=== PATIENT | female | born 1970 | race Caucasian/White ===

== ENCOUNTER 2021-09-12 11:31 | Emergency (ER) | payer BC ==
[~2021-09-12] VITALS: Ht 162.6 cm; Wt 81.0 kg
[2021-09-12 12:23] LABS: BASOPHILS % (AUTO) 0.3 % (0-1); EOSINOPHILS # (AUTO) 0.3 X10'3 (0-0.9); EOSINOPHILS % (AUTO) 3.3 % (0-6); HEMOGLOBIN 13.1 g/dl (12.0-16.0); MEAN CORPUSCULAR HGB CONC 33.6 g/dL (33.0-36.5); MEAN CORPUSCULAR VOLUME 86.3 FL (78-98); MEAN PLATELET VOLUME 8.1 FL (7.4-10.4); MONOCYTES # (AUTO) 0.8 X10'3 (0-0.9); MONOCYTES % (AUTO) 9.4 % (2-12); NEUTROPHILS # (AUTO) 5.8 X10'3 (1.8-7.7); PLATELET COUNT 277 X10'3 (140-440); RED BLOOD COUNT 4.52 X10'6 (4.20-5.60); RED CELL DISTRIBUTION WIDTH 13.1 % (11.5-14.5); WHITE BLOOD COUNT 8.9 X10'3 (4.5-11.0)
[2021-09-12 12:41] LABS: ALANINE AMINOTRANSFERASE 37 U/L (12-78); ALBUMIN 3.9 G/DL (3.4-5.0); ALKALINE PHOSPHATASE 75 IU/L (46-116); ANION GAP 10 (8-16); ASPARTATE AMINO TRANSFERASE 20 U/L (10-37); BILIRUBIN,TOTAL 0.2 MG/DL (0.1-1.0); BLOOD UREA NITROGEN 18 MG/DL (7-18); BUN/CREATININE RATIO 22.5 (6.6-38.0); CALCIUM 9.1 MG/DL (8.5-10.1); CHLORIDE 105 MMOL/L (99-107); GLUCOSE 95 MG/DL (70-104); SODIUM 142 MMOL/L (135-145); TOTAL CARBON DIOXIDE 26.6 MMOL/L (24-32); TOTAL PROTEIN 7.7 G/DL (6.4-8.2); eGFR 76 ML/MIN
[2021-09-12] MEDS ORDERED: HYDROcodone/acetaminophen 10/325mg tab PO ONE (15:45)
[2021-09-12] MEDS ORDERED: HYDR-3972 PO (15:48)
[2021-09-12 15:56] VITALS: BP 143/98
[2021-09-12 16:20] LABS: COLOR,URINE YELLOW (Yellow); GLUCOSE, URINE NEGATIVE (Neg); KETONES,URINE TRACE mg/dl (Neg); LEUKOCYTE ESTERASE ,URINE TRACE (Neg); NITRITES, URINE NEGATIVE (Neg); OCCULT BLOOD,URINE MODERATE (Neg); PH,URINE 5.5 (4.8-8.0); PROTEIN,URINE NEGATIVE (Neg); UROBILINOGEN,URINE 0.2 E.U/dL (0.2-1.0)
[2021-09-12 16:22] LABS: CLARITY,URINE SLIGHTLY CLOUDY (Clear); UA COLLECTION TYPE NON-SPECIFIED
[2021-09-12 16:28] LABS: BACTERIA,URINE 1+ /HPF (Neg); MUCUS STRANDS FEW /LPF (Neg); SQUAMOUS EPITHELIAL CELL,UR FEW /LPF (FEW); WBC,URINE 0-4 /HPF (0-4)
== END 2021-09-12 16:06 | disposition home or self-care (01) ==
LOC: ER 11:32
DX: M54.6 Pain in thoracic spine (principal); R05.9 Cough, unspecified; R10.9 Unspecified abdominal pain; Z91.040 Latex allergy status; Z88.2 Allergy status to sulfonamides; Z79.899 Other long term (current) drug therapy
CPT/HCPCS: 36415; 71045; 80053; 81001; 83880; 84484; 85025; 87088; 93005; 99285

== ENCOUNTER 2022-08-15 23:24 | Emergency (ER) | payer BC ==
[~2022-08-15] VITALS: Ht 162.6 cm; Wt 80.0 kg
[2022-08-15 23:45] LABS: HEMOGLOBIN 12.6 g/dl (12.0-16.0); PLATELET COUNT 250 X10'3 (140-440)
[2022-08-15 23:46] LABS: BASOPHILS # (AUTO) 0.1 X10'3 (0-0.2); BASOPHILS % (AUTO) 0.8 % (0-1); EOSINOPHILS # (AUTO) 0.3 X10'3 (0-0.9); EOSINOPHILS % (AUTO) 3.7 % (0-6); HEMATOCRIT 37.8 % (35.0-45.0); LYMPHOCYTES # (AUTO) 2.7 X10'3 (1.1-4.8); MEAN CORPUSCULAR HEMOGLOBIN 29.6 PG (27.0-31.0); MEAN CORPUSCULAR HGB CONC 33.4 g/dL (33.0-36.5); MEAN CORPUSCULAR VOLUME 88.5 FL (78-98); MEAN PLATELET VOLUME 8.2 FL (7.4-10.4); MONOCYTES # (AUTO) 0.8 X10'3 (0-0.9); MONOCYTES % (AUTO) 9.5 % (2-12); NEUTROPHILS # (AUTO) 4.8 X10'3 (1.8-7.7); RED BLOOD COUNT 4.27 X10'6 (4.20-5.60); RED CELL DISTRIBUTION WIDTH 13.6 % (11.5-14.5); WHITE BLOOD COUNT 8.8 X10'3 (4.5-11.0)
[2022-08-15 23:55] LABS: ALANINE AMINOTRANSFERASE 21 U/L (12-78); ALBUMIN 3.5 G/DL (3.4-5.0); ALKALINE PHOSPHATASE 76 IU/L (46-116); ANION GAP 5 (8-16); ASPARTATE AMINO TRANSFERASE 17 U/L (10-37); BILIRUBIN,TOTAL 0.2 MG/DL (0.1-1.0); BLOOD UREA NITROGEN 23 MG/DL (7-18); BUN/CREATININE RATIO 24.2 (10.0-20.0); CALCIUM 8.8 MG/DL (8.5-10.1); CHLORIDE 104 MMOL/L (99-107); CREATININE 0.95 MG/DL (0.40-0.90); GLUCOSE 111 MG/DL (70-104); POTASSIUM 3.8 MMOL/L (3.5-5.1); SODIUM 142 MMOL/L (135-145); TOTAL CARBON DIOXIDE 32.7 MMOL/L (24-32); eGFR 62 ML/MIN
[2022-08-16] MEDS ORDERED: ipratropium/albuterol 3ml nebule NEB ONE (00:25)
[2022-08-16 01:04] LABS: D-DIMER 0.68 MG/L FEU (0-0.50)
[2022-08-16] MEDS ORDERED: iohexol 350MG/ML 100ml bottle IV ONE (01:24)
[2022-08-16] MEDS ORDERED: predniSONE 20 mg tablet PO ONE (02:55)
[2022-08-16] MEDS ORDERED: PRED20TA PO (02:56)
[2022-08-16 04:35] VITALS: BP 116/78
== END 2022-08-16 04:36 | disposition home or self-care (01) ==
LOC: ER 23:25
DX: J45.901 Unspecified asthma with (acute) exacerbation (principal); R07.9 Chest pain, unspecified; E03.9 Hypothyroidism, unspecified; Z91.040 Latex allergy status; Z88.2 Allergy status to sulfonamides; Z79.899 Other long term (current) drug therapy
CPT/HCPCS: 36415; 71045; 71275; 80053; 83735; 83880; 84439; 84443; 84484; 85025; 85379; 93005; 94640; 99285; J3490; J7512; Q9967; 94760

== ENCOUNTER 2022-09-16 16:25 | Emergency (ER) | payer BC ==
[~2022-09-16] VITALS: Ht 162.6 cm; Wt 85.0 kg
[2022-09-16 16:55] LABS: BASOPHILS % (AUTO) 0.5 % (0-1); EOSINOPHILS # (AUTO) 0.2 X10'3 (0-0.9); EOSINOPHILS % (AUTO) 2.7 % (0-6); HEMATOCRIT 38.8 % (35.0-45.0); HEMOGLOBIN 12.9 g/dl (12.0-16.0); LYMPHOCYTES # (AUTO) 1.9 X10'3 (1.1-4.8); LYMPHOCYTES % (AUTO) 27.1 % (21-51); MEAN CORPUSCULAR HEMOGLOBIN 29.4 PG (27.0-31.0); MEAN CORPUSCULAR HGB CONC 33.1 g/dL (33.0-36.5); MEAN CORPUSCULAR VOLUME 88.7 FL (78-98); MEAN PLATELET VOLUME 8.3 FL (7.4-10.4); MONOCYTES # (AUTO) 0.6 X10'3 (0-0.9); MONOCYTES % (AUTO) 8.5 % (2-12); NEUTROPHILS # (AUTO) 4.3 X10'3 (1.8-7.7); NEUTROPHILS % (AUTO) 61.2 % (42-75); PLATELET COUNT 273 X10'3 (140-440); RED BLOOD COUNT 4.38 X10'6 (4.20-5.60); RED CELL DISTRIBUTION WIDTH 13.3 % (11.5-14.5)
[2022-09-16 17:08] LABS: ALANINE AMINOTRANSFERASE 27 U/L (12-78); ALBUMIN 3.5 G/DL (3.4-5.0); ALBUMIN/GLOBULIN RATIO 0.9 (1.1-1.5); ALKALINE PHOSPHATASE 71 IU/L (46-116); ANION GAP 7 (8-16); ASPARTATE AMINO TRANSFERASE 18 U/L (10-37); BILIRUBIN,TOTAL 0.2 MG/DL (0.1-1.0); BLOOD UREA NITROGEN 15 MG/DL (7-18); BUN/CREATININE RATIO 22.1 (10.0-20.0); CHLORIDE 106 MMOL/L (99-107); CREATININE 0.68 MG/DL (0.40-0.90); GLUCOSE 93 MG/DL (70-104); POTASSIUM 3.7 MMOL/L (3.5-5.1); SODIUM 141 MMOL/L (135-145); TOTAL CARBON DIOXIDE 27.6 MMOL/L (24-32); TOTAL PROTEIN 7.6 G/DL (6.4-8.2); eGFR > 90 ML/MIN
[2022-09-16 18:38] VITALS: BP 117/82
== END 2022-09-16 18:39 | disposition home or self-care (01) ==
LOC: ER 16:26
DX: R07.9 Chest pain, unspecified (principal); E03.9 Hypothyroidism, unspecified; J45.909 Unspecified asthma, uncomplicated; Z91.040 Latex allergy status; Z79.899 Other long term (current) drug therapy
CPT/HCPCS: 36415; 71045; 80053; 83735; 83880; 84484; 85025; 93005; 99285

== ENCOUNTER 2022-11-05 11:56 | Emergency (ER) | payer BC ==
[~2022-11-05] VITALS: Ht 162.6 cm; Wt 80.9 kg
[2022-11-05 12:40] VITALS: BP 127/105
[2022-11-05 12:51] LABS: URINE HCG NEGATIVE (NEG)
[2022-11-05 12:52] LABS: CLARITY,URINE SLIGHTLY CLOUDY (Clear); COLOR,URINE YELLOW (Yellow); GLUCOSE, URINE NEGATIVE (Neg); KETONES,URINE NEGATIVE (Neg); LEUKOCYTE ESTERASE ,URINE NEGATIVE (Neg); NITRITES, URINE NEGATIVE (Neg); OCCULT BLOOD,URINE TRACE-INTACT (Neg); PH,URINE 5.5 (4.8-8.0); PROTEIN,URINE NEGATIVE (Neg); UROBILINOGEN,URINE 0.2 E.U/dL (0.2-1.0)
[2022-11-05 13:02] LABS: UA COLLECTION TYPE CLN CATCH MIDSTREAM
[2022-11-05 13:11] LABS: MUCUS STRANDS MODERATE /LPF (Neg); SQUAMOUS EPITHELIAL CELL,UR MANY /LPF (FEW)
[2022-11-05 13:12] LABS: BACTERIA,URINE 3+ /HPF (Neg)
[2022-11-05 13:14] LABS: HYALINE CASTS 0-3 /LPF (NEGATIVE)
[2022-11-05 13:38] LABS: ALANINE AMINOTRANSFERASE 27 U/L (12-78); ALBUMIN 3.5 G/DL (3.4-5.0); ALKALINE PHOSPHATASE 79 IU/L (46-116); ANION GAP 6 (8-16); ASPARTATE AMINO TRANSFERASE 16 U/L (10-37); BILIRUBIN,TOTAL 0.1 MG/DL (0.1-1.0); BLOOD UREA NITROGEN 15 MG/DL (7-18); BUN/CREATININE RATIO 18.3 (10.0-20.0); CALCIUM 8.7 MG/DL (8.5-10.1); CHLORIDE 106 MMOL/L (99-107); CREATININE 0.82 MG/DL (0.40-0.90); GLUCOSE 83 MG/DL (70-104); POTASSIUM 4.1 MMOL/L (3.5-5.1); SODIUM 140 MMOL/L (135-145); TOTAL CARBON DIOXIDE 27.6 MMOL/L (24-32); TOTAL PROTEIN 6.9 G/DL (6.4-8.2); eGFR 73 ML/MIN
[2022-11-05 13:51] LABS: BASOPHILS % (AUTO) 0.7 % (0-1); EOSINOPHILS # (AUTO) 0.2 X10'3 (0-0.9); HEMATOCRIT 37.8 % (35.0-45.0); HEMOGLOBIN 12.6 g/dl (12.0-16.0); LYMPHOCYTES # (AUTO) 1.9 X10'3 (1.1-4.8); LYMPHOCYTES % (AUTO) 28.1 % (21-51); MEAN CORPUSCULAR HEMOGLOBIN 29.8 PG (27.0-31.0); MEAN CORPUSCULAR HGB CONC 33.4 g/dL (33.0-36.5); MEAN CORPUSCULAR VOLUME 89.2 FL (78-98); MEAN PLATELET VOLUME 8.5 FL (7.4-10.4); MONOCYTES # (AUTO) 0.5 X10'3 (0-0.9); MONOCYTES % (AUTO) 7.7 % (2-12); NEUTROPHILS % (AUTO) 60.5 % (42-75); PLATELET COUNT 259 X10'3 (140-440); RED BLOOD COUNT 4.24 X10'6 (4.20-5.60); WHITE BLOOD COUNT 6.6 X10'3 (4.5-11.0)
[2022-11-05 13:53] LABS: CLARITY,URINE CLOUDY (Clear); COLOR,URINE YELLOW (Yellow); GLUCOSE, URINE NEGATIVE (Neg); KETONES,URINE NEGATIVE (Neg); LEUKOCYTE ESTERASE ,URINE NEGATIVE (Neg); NITRITES, URINE NEGATIVE (Neg); OCCULT BLOOD,URINE TRACE-INTACT (Neg); PROTEIN,URINE NEGATIVE (Neg); UROBILINOGEN,URINE 0.2 E.U/dL (0.2-1.0)
[2022-11-05 13:54] LABS: UA COLLECTION TYPE CLN CATCH MIDSTREAM
[2022-11-05 14:02] LABS: BACTERIA,URINE 3+ /HPF (Neg); MUCUS STRANDS MODERATE /LPF (Neg); RBC,URINE 0-2 /HPF (0-2)
[2022-11-05 14:06] LABS: SQUAMOUS EPITHELIAL CELL,UR MANY /LPF (FEW)
== END 2022-11-05 14:38 | disposition home or self-care (01) ==
LOC: ER 11:57
DX: R10.9 Unspecified abdominal pain (principal); Z91.040 Latex allergy status; E03.9 Hypothyroidism, unspecified; Z90.49 Acquired absence of other specified parts of digestive tract; Z90.710 Acquired absence of both cervix and uterus
CPT/HCPCS: 36415; 74176; 80053; 81001; 81025; 85025; 87088; 99284

== ENCOUNTER 2022-11-11 13:55 | Emergency (ER) | payer BC ==
[~2022-11-11] VITALS: Ht 162.6 cm; Wt 81.8 kg
[2022-11-11 14:21] LABS: BASOPHILS % (AUTO) 0.5 % (0-1); EOSINOPHILS # (AUTO) 0.1 X10'3 (0-0.9); EOSINOPHILS % (AUTO) 1.2 % (0-6); HEMATOCRIT 39.3 % (35.0-45.0); HEMOGLOBIN 13.3 g/dl (12.0-16.0); LYMPHOCYTES % (AUTO) 23.8 % (21-51); MEAN CORPUSCULAR HEMOGLOBIN 30.1 PG (27.0-31.0); MEAN CORPUSCULAR HGB CONC 33.7 g/dL (33.0-36.5); MEAN CORPUSCULAR VOLUME 89.2 FL (78-98); MEAN PLATELET VOLUME 7.8 FL (7.4-10.4); MONOCYTES # (AUTO) 0.6 X10'3 (0-0.9); MONOCYTES % (AUTO) 7.2 % (2-12); NEUTROPHILS # (AUTO) 5.7 X10'3 (1.8-7.7); NEUTROPHILS % (AUTO) 67.3 % (42-75); PLATELET COUNT 299 X10'3 (140-440); RED CELL DISTRIBUTION WIDTH 13.1 % (11.5-14.5); WHITE BLOOD COUNT 8.4 X10'3 (4.5-11.0)
[2022-11-11 14:28] LABS: ALANINE AMINOTRANSFERASE 23 U/L (12-78); ALBUMIN 3.8 G/DL (3.4-5.0); ALKALINE PHOSPHATASE 78 IU/L (46-116); ANION GAP 7 (8-16); ASPARTATE AMINO TRANSFERASE 13 U/L (10-37); BILIRUBIN,TOTAL 0.1 MG/DL (0.1-1.0); BLOOD UREA NITROGEN 25 MG/DL (7-18); BUN/CREATININE RATIO 31.3 (10.0-20.0); CALCIUM 9.3 MG/DL (8.5-10.1); CHLORIDE 104 MMOL/L (99-107); GLUCOSE 91 MG/DL (70-104); POTASSIUM 4.2 MMOL/L (3.5-5.1); SODIUM 141 MMOL/L (135-145); TOTAL CARBON DIOXIDE 30.5 MMOL/L (24-32); TOTAL PROTEIN 7.6 G/DL (6.4-8.2); eGFR 76 ML/MIN
[2022-11-11] MEDS ORDERED: aspirin 81mg tab.chew PO ONE (14:35)
[2022-11-11] MEDS ORDERED: nitroGLYCERIN 0.4mg SUBLingual tab SL PRN (14:35)
[2022-11-11 18:19] VITALS: BP 133/93
== END 2022-11-11 18:22 | disposition home or self-care (01) ==
LOC: ER 13:55
DX: R42 Dizziness and giddiness (principal); R07.89 Other chest pain; R11.0 Nausea; J45.909 Unspecified asthma, uncomplicated; E03.9 Hypothyroidism, unspecified; Z91.040 Latex allergy status; Z90.49 Acquired absence of other specified parts of digestive tract; Z90.710 Acquired absence of both cervix and uterus
CPT/HCPCS: 36415; 71045; 80053; 83880; 84484; 85025; 93005; 99285

== ENCOUNTER 2023-01-10 21:47 | Emergency (ER) | payer BC ==
[~2023-01-10] VITALS: Ht 162.6 cm; Wt 81.8 kg
[2023-01-10 22:13] VITALS: TEMP 98.9
[2023-01-11 01:07] LABS: ALANINE AMINOTRANSFERASE 23 U/L (12-78); ALBUMIN 3.1 G/DL (3.4-5.0); ALBUMIN/GLOBULIN RATIO 0.8 (1.1-1.5); ALKALINE PHOSPHATASE 74 IU/L (46-116); ANION GAP 7 (8-16); ASPARTATE AMINO TRANSFERASE 16 U/L (10-37); BILIRUBIN,TOTAL 0.2 MG/DL (0.1-1.0); BLOOD UREA NITROGEN 23 MG/DL (7-18); BUN/CREATININE RATIO 33.3 (10.0-20.0); CALCIUM 9.1 MG/DL (8.5-10.1); CHLORIDE 107 MMOL/L (99-107); CREATININE 0.69 MG/DL (0.40-0.90); GLUCOSE 119 MG/DL (70-104); SODIUM 141 MMOL/L (135-145); TOTAL CARBON DIOXIDE 26.9 MMOL/L (24-32); eCRCL 82 ML/MIN; eGFR 89 ML/MIN
[2023-01-11 01:16] LABS: PRO BRAIN NATRIURETIC PEPTIDE 59 PG/ML (0-125)
[2023-01-11 01:26] LABS: BASOPHILS # (AUTO) 0.1 X10'3 (0-0.2); BASOPHILS % (AUTO) 1.3 % (0-1); EOSINOPHILS # (AUTO) 0.1 X10'3 (0-0.9); EOSINOPHILS % (AUTO) 0.6 % (0-6); HEMATOCRIT 37.5 % (35.0-45.0); HEMOGLOBIN 12.6 g/dl (12.0-16.0); LYMPHOCYTES # (AUTO) 2.3 X10'3 (1.1-4.8); LYMPHOCYTES % (AUTO) 22.4 % (21-51); MEAN CORPUSCULAR HEMOGLOBIN 30.1 PG (27.0-31.0); MEAN CORPUSCULAR HGB CONC 33.5 g/dL (33.0-36.5); MEAN CORPUSCULAR VOLUME 89.7 FL (78-98); MEAN PLATELET VOLUME 7.8 FL (7.4-10.4); MONOCYTES # (AUTO) 0.8 X10'3 (0-0.9); MONOCYTES % (AUTO) 7.7 % (2-12); NEUTROPHILS # (AUTO) 6.9 X10'3 (1.8-7.7); PLATELET COUNT 286 X10'3 (140-440); RED BLOOD COUNT 4.18 X10'6 (4.20-5.60); WHITE BLOOD COUNT 10.1 X10'3 (4.5-11.0)
[2023-01-11] MEDS ORDERED: aspirin 81mg tab.chew PO ONE (02:10)
[2023-01-11] MEDS ORDERED: normal saline 1000ML IV soln IVB ONE (02:10)
[2023-01-11] MEDS ORDERED: LORazepam 2 mg/ml vial IV ONE (02:10)
[2023-01-11] MEDS ORDERED: metoprolol tartrate 25mg tablet PO ONE (02:10)
[2023-01-11] MEDS ORDERED: ketorolac trometh. 30mg/ml inj. IV ONE (02:10)
[2023-01-11 02:20] VITALS: BP_DIAS 82
[2023-01-11 02:25] VITALS: BP_SYST 117
[2023-01-11 02:53] LABS: LIPASE 93 U/L (73-393); MAGNESIUM 2.3 MG/DL (1.5-2.4)
[2023-01-11 03:16] LABS: ETHANOL < 10 MG/DL (<10)
[2023-01-11 03:49] VITALS: PULSE 64; RESP 18; O2SAT 97
== END 2023-01-11 03:51 | disposition home or self-care (01) ==
LOC: ER 21:48
DX: R07.9 Chest pain, unspecified (principal); R00.2 Palpitations; F41.0 Panic disorder [episodic paroxysmal anxiety]; J45.909 Unspecified asthma, uncomplicated; E03.9 Hypothyroidism, unspecified; Z90.49 Acquired absence of other specified parts of digestive tract; Z91.040 Latex allergy status
CPT/HCPCS: 36415; 71045; 80053; 80320; 83690; 83735; 83880; 84484; 85025; 93005; 96361; 96374; 99285; J1885; J7030

== ENCOUNTER 2023-01-18 08:56 | Emergency (ER) | payer BC ==
[~2023-01-18] VITALS: Ht 162.6 cm; Wt 80.8 kg
[2023-01-18 08:59] VITALS: BP 124/85; PULSE 71; RESP 16; TEMP 98.4; O2SAT 98
[2023-01-18] MEDS ORDERED: GABA-530 PO (21:02)
== END 2023-01-18 13:34 | disposition left against medical advice (07) ==
LOC: ER 08:57
DX: M79.671 Pain in right foot (principal); M79.672 Pain in left foot; Z53.21 Procedure and treatment not carried out due to patient leaving prior to being seen by health care provider
CPT/HCPCS: 99281

== ENCOUNTER 2023-01-18 15:16 | Emergency (ER) | payer BC ==
[~2023-01-18] VITALS: Ht 162.6 cm; Wt 76.4 kg
[2023-01-18 15:17] VITALS: BP 138/87; PULSE 80; RESP 16; TEMP 98; O2SAT 95
[2023-01-18 17:57] LABS: BASOPHILS % (AUTO) 0.4 % (0-1); EOSINOPHILS # (AUTO) 0.1 X10'3 (0-0.9); EOSINOPHILS % (AUTO) 1.6 % (0-6); HEMATOCRIT 39.1 % (35.0-45.0); LYMPHOCYTES # (AUTO) 1.8 X10'3 (1.1-4.8); LYMPHOCYTES % (AUTO) 21.7 % (21-51); MEAN CORPUSCULAR HEMOGLOBIN 30.3 PG (27.0-31.0); MEAN CORPUSCULAR HGB CONC 33.3 g/dL (33.0-36.5); MEAN PLATELET VOLUME 7.6 FL (7.4-10.4); MONOCYTES # (AUTO) 0.7 X10'3 (0-0.9); MONOCYTES % (AUTO) 8.2 % (2-12); NEUTROPHILS # (AUTO) 5.5 X10'3 (1.8-7.7); NEUTROPHILS % (AUTO) 68.1 % (42-75); PLATELET COUNT 265 X10'3 (140-440); RED CELL DISTRIBUTION WIDTH 13.5 % (11.5-14.5); WHITE BLOOD COUNT 8.1 X10'3 (4.5-11.0)
[2023-01-18 18:19] LABS: ALANINE AMINOTRANSFERASE 19 U/L (12-78); ALBUMIN 3.1 G/DL (3.4-5.0); ALBUMIN/GLOBULIN RATIO 0.9 (1.1-1.5); ALKALINE PHOSPHATASE 64 IU/L (46-116); ANION GAP 6 (8-16); ASPARTATE AMINO TRANSFERASE 14 U/L (10-37); BILIRUBIN,TOTAL 0.1 MG/DL (0.1-1.0); BLOOD UREA NITROGEN 16 MG/DL (7-18); BUN/CREATININE RATIO 19.5 (10.0-20.0); CALCIUM 8.9 MG/DL (8.5-10.1); CHLORIDE 105 MMOL/L (99-107); CREATININE 0.82 MG/DL (0.40-0.90); GLUCOSE 104 MG/DL (70-104); POTASSIUM 3.9 MMOL/L (3.5-5.1); SODIUM 142 MMOL/L (135-145); TOTAL CARBON DIOXIDE 31.5 MMOL/L (24-32); TOTAL PROTEIN 6.7 G/DL (6.4-8.2); eCRCL 69 ML/MIN; eGFR 73 ML/MIN
--- NOTE | 2023-01-18 20:00 | NUR ---
VAS AT BS
[2023-01-18] MEDS ORDERED: GABA-530 PO (21:02)
== END 2023-01-18 21:10 | disposition home or self-care (01) ==
LOC: ER 15:16
DX: S96.911A Strain of unspecified muscle and tendon at ankle and foot level, right foot, initial encounter (principal); S96.912A Strain of unspecified muscle and tendon at ankle and foot level, left foot, initial encounter; M79.671 Pain in right foot; M79.672 Pain in left foot; E03.9 Hypothyroidism, unspecified; J45.909 Unspecified asthma, uncomplicated; G43.909 Migraine, unspecified, not intractable, without status migrainosus; E78.00 Pure hypercholesterolemia, unspecified; I13.0 Hypertensive heart and chronic kidney disease with heart failure and stage 1 through stage 4 chronic kidney disease, or unspecified chronic kidney disease; I50.9 Heart failure, unspecified; N18.9 Chronic kidney disease, unspecified; J44.9 Chronic obstructive pulmonary disease, unspecified; K21.9 Gastro-esophageal reflux disease without esophagitis; E11.22 Type 2 diabetes mellitus with diabetic chronic kidney disease; Z91.040 Latex allergy status; Z88.2 Allergy status to sulfonamides; Z90.710 Acquired absence of both cervix and uterus; Z90.49 Acquired absence of other specified parts of digestive tract; X58.XXXA Exposure to other specified factors, initial encounter; Y93.89 Activity, other specified; Y92.89 Other specified places as the place of occurrence of the external cause; Y99.8 Other external cause status
CPT/HCPCS: 36415; 73630; 80053; 85025; 85651; 93970; 99284

== ENCOUNTER 2023-06-15 13:55 | Emergency (ER) | payer SELFPAY ==
[~2023-06-15] VITALS: Ht 162.6 cm; Wt 82.3 kg
[~2023-06-15 13:55] MED LIST: GABA-530 PO
[2023-06-15 14:35] VITALS: BP 133/90; PULSE 79; RESP 18; TEMP 98.5; O2SAT 96
[2023-06-15] MEDS ORDERED: FAMO-129 PO (15:17)
[2023-06-15] MEDS ORDERED: PRED10TA23 PO (15:17)
[2023-06-15] MEDS ORDERED: DIPH25CA83 PO (15:17)
[2023-06-15] MEDS ORDERED: PERM60CR19 TOP (15:17)
== END 2023-06-15 15:29 | disposition home or self-care (01) ==
LOC: ER 13:56
DX: S60.562A Insect bite (nonvenomous) of left hand, initial encounter (principal); S60.561A Insect bite (nonvenomous) of right hand, initial encounter; S30.861A Insect bite (nonvenomous) of abdominal wall, initial encounter; S20.369A Insect bite (nonvenomous) of unspecified front wall of thorax, initial encounter; S10.96XA Insect bite of unspecified part of neck, initial encounter; E03.9 Hypothyroidism, unspecified; J45.909 Unspecified asthma, uncomplicated; Z88.2 Allergy status to sulfonamides; Z91.040 Latex allergy status; W57.XXXA Bitten or stung by nonvenomous insect and other nonvenomous arthropods, initial encounter; Y93.89 Activity, other specified; Y92.89 Other specified places as the place of occurrence of the external cause; Y99.8 Other external cause status
CPT/HCPCS: 99283

== ENCOUNTER 2023-09-11 09:24 | Emergency (ER) | payer MEDICAID ==
[~2023-09-11] VITALS: Ht 162.6 cm; Wt 87.0 kg
[~2023-09-11 09:24] MED LIST changes: +ESTR1.25 PO; -GABA-530 PO; +HYOS-26 SL; +LEVO75TA PO; +OXYB5TAB21 PO
[2023-09-11 11:26] VITALS: BP 121/85; PULSE 76; RESP 16; TEMP 98; O2SAT 96
== END 2023-09-11 11:28 | disposition home or self-care (01) ==
LOC: ER 09:25
DX: R51.9 Headache, unspecified (principal); R22.41 Localized swelling, mass and lump, right lower limb; I10 Essential (primary) hypertension; J45.909 Unspecified asthma, uncomplicated; E03.9 Hypothyroidism, unspecified; Z90.49 Acquired absence of other specified parts of digestive tract; Z90.710 Acquired absence of both cervix and uterus; Z88.2 Allergy status to sulfonamides; Z91.040 Latex allergy status
CPT/HCPCS: 99282

== ENCOUNTER 2023-09-28 12:33 | Emergency (ER) | payer MEDICAID ==
[~2023-09-28] VITALS: Ht 162.6 cm; Wt 85.0 kg
[2023-09-28 12:46] VITALS: BP 142/91; PULSE 68; RESP 16; TEMP 98.4; O2SAT 98
[2023-09-29] MEDS ORDERED: AMOX-117 PO (09:53)
== END 2023-09-28 14:55 | disposition left against medical advice (07) ==
LOC: ER 12:34
DX: R51.9 Headache, unspecified (principal); Z53.21 Procedure and treatment not carried out due to patient leaving prior to being seen by health care provider

== ENCOUNTER 2023-09-29 09:01 | Emergency (ER) | payer MEDICAID ==
[~2023-09-29] VITALS: Ht 162.6 cm; Wt 85.4 kg
[2023-09-29 09:26] VITALS: BP 136/98; PULSE 74; RESP 18; TEMP 97.8; O2SAT 98
[2023-09-29] MEDS ORDERED: AMOX-117 PO (09:53)
[2023-10-06] MEDS ORDERED: PRED20TA PO (12:03)
[2023-10-06] MEDS ORDERED: BUDE0.5A3 IH (12:03)
[2023-10-06] MEDS ORDERED: ALBU2.5V7 NEB (12:03)
[2023-10-06] MEDS ORDERED: TIZA-205 PO (12:03)
[2023-10-06] MEDS ORDERED: MONT-40 PO (12:03)
[2023-10-06] MEDS ORDERED: HYDR-3964 PO (12:03)
== END 2023-09-29 10:26 | disposition home or self-care (01) ==
LOC: ER 09:01
DX: J01.90 Acute sinusitis, unspecified (principal); R51.9 Headache, unspecified; H92.03 Otalgia, bilateral; J02.9 Acute pharyngitis, unspecified; J45.909 Unspecified asthma, uncomplicated; I10 Essential (primary) hypertension; Z88.2 Allergy status to sulfonamides; Z91.040 Latex allergy status
CPT/HCPCS: 99283

== ENCOUNTER 2023-10-02 15:19 | Inpatient (IN) | payer MEDICAID ==
[~2023-10-02] VITALS: Ht 162.6 cm; Wt 83.2 kg
[~2023-10-02 15:19] MED LIST changes: +AMOX-117 PO
[2023-10-02 15:48] LABS: BASOPHILS # (AUTO) 0.1 X10'3 (0-0.2); BASOPHILS % (AUTO) 0.9 % (0-1); EOSINOPHILS # (AUTO) 0.4 X10'3 (0-0.9); EOSINOPHILS % (AUTO) 4.1 % (0-6); HEMATOCRIT 40.4 % (35.0-45.0); HEMOGLOBIN 13.4 g/dl (12.0-16.0); LYMPHOCYTES # (AUTO) 2.8 X10'3 (1.1-4.8); LYMPHOCYTES % (AUTO) 32.3 % (21-51); MEAN CORPUSCULAR HEMOGLOBIN 29.2 PG (27.0-31.0); MEAN CORPUSCULAR HGB CONC 33.1 g/dL (33.0-36.5); MEAN CORPUSCULAR VOLUME 88.4 FL (78-98); MEAN PLATELET VOLUME 7.9 FL (7.4-10.4); MONOCYTES # (AUTO) 0.7 X10'3 (0-0.9); MONOCYTES % (AUTO) 7.8 % (2-12); NEUTROPHILS # (AUTO) 4.8 X10'3 (1.8-7.7); NEUTROPHILS % (AUTO) 54.9 % (42-75); PLATELET COUNT 281 X10'3 (140-440); RED BLOOD COUNT 4.57 X10'6 (4.20-5.60); WHITE BLOOD COUNT 8.8 X10'3 (4.5-11.0)
[2023-10-02] MEDS: magnesium 2GM in 50ml NS 50 ML IV ONE (15:59)
[2023-10-02] MEDS: methylPREDNISolone sod succ 125mg/2ml vial IV ONE (15:59)
[2023-10-02 16:01] LABS: ALANINE AMINOTRANSFERASE 26 U/L (12-78); ALBUMIN 3.7 G/DL (3.4-5.0); ALBUMIN/GLOBULIN RATIO 0.9 (1.1-1.5); ALKALINE PHOSPHATASE 74 IU/L (46-116); ANION GAP 7 (8-16); ASPARTATE AMINO TRANSFERASE 14 U/L (10-37); BILIRUBIN,TOTAL 0.2 MG/DL (0.1-1.0); BLOOD UREA NITROGEN 23 MG/DL (7-18); BUN/CREATININE RATIO 28.8 (10.0-20.0); CHLORIDE 106 MMOL/L (99-107); GLUCOSE 96 MG/DL (70-104); POTASSIUM 3.9 MMOL/L (3.5-5.1); SODIUM 141 MMOL/L (135-145); TOTAL CARBON DIOXIDE 28.1 MMOL/L (24-32); TOTAL PROTEIN 7.7 G/DL (6.4-8.2); eCRCL 71 ML/MIN; eGFR 75 ML/MIN
[2023-10-02 16:08] LABS: PRO BRAIN NATRIURETIC PEPTIDE 156 PG/ML (0-125)
[2023-10-02] MEDS: albuterol 2.5 MG/3 ML nebule CONTNEB PRN ×2 (16:21→18:37)
[2023-10-02 16:23] VITALS: PULSE 79; PULSE 80; RESP 18; RESP 20; O2SAT 96; O2SAT 98
[2023-10-02 17:13] VITALS: PULSE 91; RESP 20; O2SAT 93
[2023-10-02 18:38] VITALS: PULSE 87; RESP 18; O2SAT 95
[2023-10-02 19:43] VITALS: PULSE 96; RESP 18; O2SAT 99
[2023-10-02] MEDS: acetaminophen 325mg tablet PO ONE (20:57)
[2023-10-02] MEDS ORDERED: LIOT5TAB14 PO (20:58)
[2023-10-02] MEDS: LORazepam 1 MG tablet PO ONE (21:03)
[2023-10-03 01:40] VITALS: TEMP 99.1
[2023-10-03] MEDS ORDERED: potassium Cl 20 mEq SR tablet PO PRN ×2 (02:10)
[2023-10-03] MEDS ORDERED: magnesium Cl slow-release 64mg tablet PO PRN (02:10)
[2023-10-03] MEDS ORDERED: magnesium 2GM in 50ml NS 50 ML IV PRN (02:10)
[2023-10-03] MEDS ORDERED: magnesium 4gm in 100ml NS 100 ML IV PRN (02:10)
[2023-10-03] MEDS ORDERED: acetaminophen 325mg tablet PO PRN (02:10)
[2023-10-03] MEDS ORDERED: potassium Cl 40MEQ/1/2NS 520ml 520 ML IV PRN (02:10)
[2023-10-03 02:38] VITALS: PULSE 89; RESP 16; O2SAT 98
[2023-10-03] MEDS: ipratropium/albuterol 3ml nebule NEB SCH (02:38)
[2023-10-03 02:46] VITALS: PULSE 81; RESP 16
[2023-10-03] MEDS: amoxicillin 250mg capsule PO ONE (03:18)
[2023-10-03] MEDS: normal saline 1000ml 1,000 ML IV SCH (03:20)
[2023-10-03] MEDS: K and/or MAG REPLACEMENT MC SCH (07:24)
[2023-10-03] MEDS: methylPREDNISolone sod succ/PF 40mg inj. IV SCH (07:27)
[2023-10-03] MEDS: amoxicillin 250mg capsule PO SCH (07:27)
[2023-10-03 08:34] LABS: MAGNESIUM 2.3 MG/DL (1.5-2.4); POTASSIUM 4.1 MMOL/L (3.5-5.1)
[2023-10-03] MEDS ORDERED: iohexol 300mg/ml 100ml inj. ONE (10:27)
[2023-10-03] MEDS: ondansetron/PF 4mg/2ml inj IV PRN (10:55)
[2023-10-03] MEDS: traMADol 50MG tablet PO PRN (10:55)
[2023-10-03] MEDS ORDERED: ACET-1008 PO (12:23)
[2023-10-03] MEDS ORDERED: SUMA25TA35 PO (12:28)
[2023-10-03 12:32] VITALS: PULSE 78; RESP 17; O2SAT 96
[2023-10-03 12:37] VITALS: PULSE 77; RESP 17
[2023-10-03 13:22] VITALS: BP 122/77; PULSE 88; RESP 17; O2SAT 94
[2023-10-03] MEDS ORDERED: ALBU18HF2 IH (14:25)
== END 2023-10-03 13:22 | disposition home or self-care (01) | DRG 141 ==
LOC: ER 15:20 → ED HOLD 10-03 02:11
PROVIDERS: ADMIT Internal Medicine; ATTEND Internal Medicine
PROC: B92 Imaging, Ear, Nose, Mouth and Throat, Computerized Tomography (CT Scan) (ICD-10-PCS; principal; 2023-10-03)
DX: J45.902 Unspecified asthma with status asthmaticus (principal); E03.9 Hypothyroidism, unspecified; J32.9 Chronic sinusitis, unspecified; R51.9 Headache, unspecified; Z20.822 Contact with and (suspected) exposure to COVID-19; I10 Essential (primary) hypertension; Z91.040 Latex allergy status; Z90.710 Acquired absence of both cervix and uterus; Z90.49 Acquired absence of other specified parts of digestive tract; Z82.3 Family history of stroke; Z88.2 Allergy status to sulfonamides
CPT/HCPCS: 36415; 70450; 70487; 71045; 80053; 83735; 83880; 84132; 84145; 84484; 85025; 85651; 87502; 87503; 87811; 93005; 94640; 94760; 99285; A4615; A7015; G0378; J2405; J2920; J2930; J3475; J3490; J7030; Q9967

== ENCOUNTER 2023-10-22 12:01 | Outpatient (CLI) | payer MEDICAID ==
[~2023-10-22 12:01] MED LIST changes: +ACET-1008 PO; +ALBU18HF2 IH; +ALBU2.5V7 NEB; -AMOX-117 PO; +BUDE0.5A3 IH; +HYDR-3964 PO; +LIOT5TAB14 PO; +MONT-40 PO; +PANT40TA54 PO; +PRED20TA PO; +SUMA25TA35 PO; +TIZA-205 PO
[2023-10-22 12:38] LABS: ALBUMIN 3.4 G/DL (3.4-5.0); ANION GAP 6 (8-16); APTT 23 SECONDS (22-32); BLOOD UREA NITROGEN 20 MG/DL (7-18); BUN/CREATININE RATIO 27.8 (10.0-20.0); CALCIUM 9.3 MG/DL (8.5-10.1); CHLORIDE 105 MMOL/L (99-107); CHOLESTEROL 148 MG/DL (0-200); CREATININE 0.72 MG/DL (0.40-0.90); GLUCOSE 87 MG/DL (70-104); HDL CHOLESTEROL 50 MG/DL (35-60); LDL CHOLESTEROL 89 MG/DL (50-100); POTASSIUM 3.8 MMOL/L (3.5-5.1); SODIUM 139 MMOL/L (135-145); TOTAL CARBON DIOXIDE 28.2 MMOL/L (24-32); TRIGLYCERIDES 80 MG/DL (20-135); eGFR 85 ML/MIN
[2023-10-22 12:39] LABS: BASOPHILS % (AUTO) 0.3 % (0-1); EOSINOPHILS % (AUTO) 0.3 % (0-6); HEMATOCRIT 38.4 % (35.0-45.0); HEMOGLOBIN 12.7 g/dl (12.0-16.0); LYMPHOCYTES % (AUTO) 23.6 % (21-51); MEAN CORPUSCULAR HEMOGLOBIN 29.6 PG (27.0-31.0); MEAN CORPUSCULAR VOLUME 89.6 FL (78-98); MEAN PLATELET VOLUME 8.3 FL (7.4-10.4); MONOCYTES # (AUTO) 0.7 X10'3 (0-0.9); MONOCYTES % (AUTO) 8.9 % (2-12); NEUTROPHILS # (AUTO) 5.6 X10'3 (1.8-7.7); NEUTROPHILS % (AUTO) 66.9 % (42-75); PLATELET COUNT 256 X10'3 (140-440); RED BLOOD COUNT 4.29 X10'6 (4.20-5.60); RED CELL DISTRIBUTION WIDTH 13.8 % (11.5-14.5); WHITE BLOOD COUNT 8.4 X10'3 (4.5-11.0)
== END 2023-10-22 23:59 | disposition home or self-care (01) ==
LOC: RAD 12:01
PROVIDERS: ATTEND Internal Medicine Interventional Cardiology
DX: Z01.812 Encounter for preprocedural laboratory examination (principal); E78.5 Hyperlipidemia, unspecified; R53.83 Other fatigue
CPT/HCPCS: 36415; 80048; 80061; 85025; 85610; 85730

== ENCOUNTER 2023-10-25 10:35 | Inpatient (IN) | payer MEDICAID ==
[~2023-10-25] VITALS: Ht 167.6 cm; Wt 70.4 kg
[2023-10-25] VITALS (15 sets, daily range): BP systolic 80–139; BP diastolic 60–79; PULSE 53–74; RESP 10–16; TEMP 97.7–98.1; O2SAT 94–98
[2023-10-25 11:52] LABS: BASOPHILS # (AUTO) 0.1 X10'3 (0-0.2); BASOPHILS % (AUTO) 0.6 % (0-1); EOSINOPHILS # (AUTO) 0.1 X10'3 (0-0.9); EOSINOPHILS % (AUTO) 1.4 % (0-6); HEMATOCRIT 39.2 % (35.0-45.0); LYMPHOCYTES # (AUTO) 2.7 X10'3 (1.1-4.8); LYMPHOCYTES % (AUTO) 29.5 % (21-51); MEAN CORPUSCULAR HEMOGLOBIN 29.6 PG (27.0-31.0); MEAN CORPUSCULAR HGB CONC 33.2 g/dL (33.0-36.5); MEAN CORPUSCULAR VOLUME 89.1 FL (78-98); MEAN PLATELET VOLUME 7.9 FL (7.4-10.4); MONOCYTES # (AUTO) 0.7 X10'3 (0-0.9); NEUTROPHILS # (AUTO) 5.5 X10'3 (1.8-7.7); NEUTROPHILS % (AUTO) 60.5 % (42-75); PLATELET COUNT 273 X10'3 (140-440); RED BLOOD COUNT 4.39 X10'6 (4.20-5.60); RED CELL DISTRIBUTION WIDTH 13.1 % (11.5-14.5); WHITE BLOOD COUNT 9.1 X10'3 (4.5-11.0)
[2023-10-25 12:11] LABS: ALANINE AMINOTRANSFERASE 52 U/L (12-78); ALBUMIN 3.4 G/DL (3.4-5.0); ALBUMIN/GLOBULIN RATIO 0.9 (1.1-1.5); ALKALINE PHOSPHATASE 61 IU/L (46-116); ANION GAP 8 (8-16); ASPARTATE AMINO TRANSFERASE 11 U/L (10-37); BILIRUBIN,TOTAL 0.3 MG/DL (0.1-1.0); BLOOD UREA NITROGEN 26 MG/DL (7-18); BUN/CREATININE RATIO 32.5 (10.0-20.0); CALCIUM 8.9 MG/DL (8.5-10.1); CHLORIDE 105 MMOL/L (99-107); GLUCOSE 85 MG/DL (70-104); POTASSIUM 3.5 MMOL/L (3.5-5.1); SODIUM 141 MMOL/L (135-145); TOTAL CARBON DIOXIDE 27.6 MMOL/L (24-32); TOTAL PROTEIN 7.1 G/DL (6.4-8.2); eCRCL 77 ML/MIN; eGFR 75 ML/MIN
[2023-10-25 12:19] LABS: PRO BRAIN NATRIURETIC PEPTIDE 77 PG/ML (0-125)
[2023-10-25] MEDS ORDERED: iohexol 350MG/ML 100ml bottle IV ONE ×2 (13:19→16:49)
[2023-10-25] MEDS ORDERED: HYDROcodone/acetaminophen 10/325mg tab PO PRN (13:30)
[2023-10-25] MEDS ORDERED: acetaminophen 325mg tablet PO PRN ×2 (13:30)
[2023-10-25] MEDS ORDERED: mag hydrox/Alum hydrox/simeth 30ml oral suspension PO PRN (13:30)
[2023-10-25] MEDS ORDERED: magnesium hydroxide 30ml (MOM) UD suspension PO PRN (13:30)
[2023-10-25] MEDS ORDERED: morphine 2 MG/ML inj. syringe IV PRN ×2 (13:30)
[2023-10-25] MEDS ORDERED: aspirin 325mg tablet PO ONE (13:30)
[2023-10-25] MEDS: nitroGLYCERIN 1gm ointment UD TP ONE (13:46)
[2023-10-25 13:51] LABS: D-DIMER 1.19 MG/L FEU (0-0.50)
[2023-10-25] MEDS ORDERED: ESTR1.25 PO (14:57)
[2023-10-25] MEDS ORDERED: MET0.75G TP (15:07)
[2023-10-25] MEDS ORDERED: FLUT1DIS15 INH (15:08)
[2023-10-25] MEDS ORDERED: BACL10TA2 PO (15:09)
[2023-10-25 15:30] LABS: PRO BRAIN NATRIURETIC PEPTIDE 70 PG/ML (0-125)
[2023-10-25] MEDS ORDERED: LIDOcaine 1% (10mg/ml) 2ml vial ONE (16:49)
[2023-10-25] MEDS ORDERED: midazolam 1 mg/ML 2ml injection ONE (16:49)
[2023-10-25] MEDS ORDERED: heparin 1,000unit/ml 10ml vial 10 ML ONE (16:49)
[2023-10-25] MEDS ORDERED: verapamil 2.5 mg/ml inj IV ONE (16:49)
[2023-10-25] MEDS ORDERED: fentaNYL/PF 50MCG/1 ML 2ML syringe ONE (16:49)
[2023-10-25] MEDS ORDERED: nitroGLYCERIN 500mcg/5mL D5W 5 ML IV ONE (16:50)
[2023-10-25] MEDS: ondansetron/PF 4mg/2ml inj IV PRN (17:59)
[2023-10-25] MEDS: HYDROcodone/acetaminophen 5mg/325mg tablet PO PRN (19:57)
[2023-10-25] MEDS: docusate sod 100mg capsule PO SCH (20:53)
[2023-10-26] VITALS (11 sets, daily range): BP systolic 114–136; BP diastolic 65–80; PULSE 53–83; RESP 13–20; TEMP 97.6–97.8; O2SAT 94–96
[2023-10-26 07:26] LABS: BASOPHILS % (AUTO) 0.3 % (0-1); EOSINOPHILS # (AUTO) 0.1 X10'3 (0-0.9); EOSINOPHILS % (AUTO) 1.9 % (0-6); HEMATOCRIT 35.8 % (35.0-45.0); HEMOGLOBIN 11.7 g/dl (12.0-16.0); LYMPHOCYTES # (AUTO) 1.8 X10'3 (1.1-4.8); LYMPHOCYTES % (AUTO) 27.7 % (21-51); MEAN CORPUSCULAR HEMOGLOBIN 29.4 PG (27.0-31.0); MEAN CORPUSCULAR HGB CONC 32.7 g/dL (33.0-36.5); MEAN CORPUSCULAR VOLUME 89.9 FL (78-98); MEAN PLATELET VOLUME 7.9 FL (7.4-10.4); MONOCYTES # (AUTO) 0.6 X10'3 (0-0.9); MONOCYTES % (AUTO) 9.3 % (2-12); NEUTROPHILS # (AUTO) 3.9 X10'3 (1.8-7.7); NEUTROPHILS % (AUTO) 60.8 % (42-75); PLATELET COUNT 248 X10'3 (140-440); RED BLOOD COUNT 3.99 X10'6 (4.20-5.60); RED CELL DISTRIBUTION WIDTH 13.4 % (11.5-14.5); WHITE BLOOD COUNT 6.3 X10'3 (4.5-11.0)
[2023-10-26 08:15] LABS: ALBUMIN 2.8 G/DL (3.4-5.0); ANION GAP 8 (8-16); BLOOD UREA NITROGEN 21 MG/DL (7-18); BUN/CREATININE RATIO 29.2 (10.0-20.0); CALCIUM 8.4 MG/DL (8.5-10.1); CHLORIDE 107 MMOL/L (99-107); CREATININE 0.72 MG/DL (0.40-0.90); GLUCOSE 85 MG/DL (70-104); POTASSIUM 3.9 MMOL/L (3.5-5.1); SODIUM 140 MMOL/L (135-145); eCRCL 86 ML/MIN; eGFR 85 ML/MIN
[2023-10-26] MEDS ORDERED: HYDR-3965 PO (08:40)
== END 2023-10-26 10:50 | disposition home or self-care (01) | DRG 141 ==
LOC: ER 10:36 → OBSVTOIN 13:31 → ED HOLD 13:31 → EDBEDREQ 15:01 → PCU 3S 16:15
PROVIDERS: ADMIT Internal Medicine; ATTEND Internal Medicine
PROC: 4A023N7 Measurement of Cardiac Sampling and Pressure, Left Heart, Percutaneous Approach (ICD-10-PCS; principal; 2023-10-25)
PROC: B2111ZZ Fluoroscopy of Multiple Coronary Arteries using Low Osmolar Contrast (ICD-10-PCS; 2023-10-25)
DX: J45.909 Unspecified asthma, uncomplicated (principal); E24.9 Cushing's syndrome, unspecified; E06.3 Autoimmune thyroiditis; I10 Essential (primary) hypertension; R00.1 Bradycardia, unspecified; M79.601 Pain in right arm; Z79.899 Other long term (current) drug therapy; Z88.2 Allergy status to sulfonamides; Z91.040 Latex allergy status; Z90.49 Acquired absence of other specified parts of digestive tract; Z90.710 Acquired absence of both cervix and uterus; Z82.3 Family history of stroke
CPT/HCPCS: 36415; 71045; 80048; 80053; 83880; 84484; 85025; 85379; 93005; 93458; 99152; 99285; A6258; C1894; G0378; J1644; J2250; J2405; J3010; J3490; J7030; Q9967

== ENCOUNTER 2024-02-08 20:48 | Emergency (ER) | payer MEDICAID, OTHER ==
[~2024-02-08] VITALS: Ht 162.6 cm; Wt 84.5 kg
[~2024-02-08 20:48] MED LIST changes: -ACET-1008 PO; +BACL10TA2 PO; -BUDE0.5A3 IH; +FLUT1DIS15 INH; -HYDR-3964 PO; -HYOS-26 SL; +MET0.75G TP; -OXYB5TAB21 PO; -PANT40TA54 PO; -SUMA25TA35 PO; -TIZA-205 PO
[2024-02-08 20:49] VITALS: BP 139/90; PULSE 76; RESP 17; TEMP 98; O2SAT 96
[2024-02-08 21:30] LABS: BASOPHILS # (AUTO) 0.1 X10'3 (0-0.2); BASOPHILS % (AUTO) 0.6 % (0-1); EOSINOPHILS # (AUTO) 0.3 X10'3 (0-0.9); EOSINOPHILS % (AUTO) 3.6 % (0-6); HEMATOCRIT 38.1 % (35.0-45.0); HEMOGLOBIN 12.6 g/dl (12.0-16.0); LYMPHOCYTES # (AUTO) 2.6 X10'3 (1.1-4.8); LYMPHOCYTES % (AUTO) 30.9 % (21-51); MEAN CORPUSCULAR HEMOGLOBIN 29.2 PG (27.0-31.0); MEAN CORPUSCULAR VOLUME 88.4 FL (78-98); MEAN PLATELET VOLUME 7.9 FL (7.4-10.4); MONOCYTES # (AUTO) 0.9 X10'3 (0-0.9); MONOCYTES % (AUTO) 10.4 % (2-12); NEUTROPHILS # (AUTO) 4.6 X10'3 (1.8-7.7); NEUTROPHILS % (AUTO) 54.5 % (42-75); PLATELET COUNT 244 X10'3 (140-440); RED BLOOD COUNT 4.31 X10'6 (4.20-5.60); RED CELL DISTRIBUTION WIDTH 13.3 % (11.5-14.5); WHITE BLOOD COUNT 8.3 X10'3 (4.5-11.0)
[2024-02-08 21:56] LABS: ALANINE AMINOTRANSFERASE 26 U/L (12-78); ALBUMIN 3.4 G/DL (3.4-5.0); ALBUMIN/GLOBULIN RATIO 0.9 (1.1-1.5); ALKALINE PHOSPHATASE 72 IU/L (46-116); ANION GAP 6 (8-16); ASPARTATE AMINO TRANSFERASE 21 U/L (10-37); BILIRUBIN,TOTAL 0.2 MG/DL (0.1-1.0); BLOOD UREA NITROGEN 21 MG/DL (7-18); BUN/CREATININE RATIO 27.6 (10.0-20.0); CHLORIDE 107 MMOL/L (99-107); CREATININE 0.76 MG/DL (0.40-0.90); GLUCOSE 90 MG/DL (70-104); POTASSIUM 3.6 MMOL/L (3.5-5.1); PRO BRAIN NATRIURETIC PEPTIDE 50 PG/ML (0-125); SODIUM 143 MMOL/L (135-145); TOTAL CARBON DIOXIDE 29.6 MMOL/L (24-32); eCRCL 74 ML/MIN; eGFR 80 ML/MIN
== END 2024-02-08 22:24 | disposition left against medical advice (07) ==
LOC: ER 20:48
DX: R07.9 Chest pain, unspecified (principal); M79.651 Pain in right thigh; Z53.21 Procedure and treatment not carried out due to patient leaving prior to being seen by health care provider; Z88.2 Allergy status to sulfonamides; Z91.040 Latex allergy status
CPT/HCPCS: 36415; 71045; 80053; 83880; 84484; 85025; 93005

== ENCOUNTER 2024-10-24 22:29 | Emergency (ER) | payer MEDICAID, OTHER ==
[~2024-10-24] VITALS: Ht 162.6 cm; Wt 75.2 kg
[2024-10-24 22:43] VITALS: BP 124/88; PULSE 73; RESP 16; TEMP 98.2; O2SAT 98
--- NOTE | 2024-10-24 22:46 | ELECTROCARDIOGRAPH REPORT ---
[facility] Test Date: 2024-10-24 Test Time: 22:31:12 Pat Name: NAYA SARKAR Department: EMERGENCY ROOM Room: Gender: F Maintenance Dispatcher: : 1970 Requested By: KARINA HARRINGTON Order Number: [id number] Reading MD: Dr. Tanner Villatoro Measurements Intervals [place] Rate: 66 P: 66 DE: 148 QRS: 21 QRSD: 92 T: 56 QT: 371 QTc: 389 Interpretive Statements Sinus rhythm Electronically Signed On 10-26-2024 6:35:[address] Tanner Villatoro Please click the below link to view image of tracing.
== END 2024-10-25 00:37 | disposition left against medical advice (07) ==
LOC: ER 22:29
DX: R00.2 Palpitations (principal); Z88.2 Allergy status to sulfonamides; Z91.040 Latex allergy status; Z53.21 Procedure and treatment not carried out due to patient leaving prior to being seen by health care provider
CPT/HCPCS: 93005

== ENCOUNTER 2024-10-26 20:38 | Emergency (ER) | payer OTHER ==
[~2024-10-26] VITALS: Ht 162.6 cm; Wt 72.5 kg
--- NOTE | 2024-10-26 20:52 | ELECTROCARDIOGRAPH REPORT ---
[facility] Test Date: 2024-10-26 Test Time: 20:41:51 Pat Name: NAYA SARKAR Department: EMERGENCY ROOM Room: Gender: F Manager Science: : 1970 Requested By: KARINA HARRINGTON Order Number: [id number] Reading MD: Dr. Tanner Villatoro Measurements Intervals [place] Rate: 85 P: 47 ID: 134 QRS: 45 QRSD: 81 T: 23 QT: 349 QTc: 415 Interpretive Statements Sinus rhythm Minimal ST depression, inferior leads Electronically Signed On 10-27-2024 6:09:[address] Tanner Villatoro Please click the below link to view image of tracing.
--- NOTE | 2024-10-26 21:00 | Physician Documentation ---
History of Present Illness ~ Chief Complaint: Chest Pain Stated Complaint: CHEST PAIN Time Seen by MD: 20:59 Primary Medical Doctor: ALVARO REEVES HPI Patient presents to the emergency room with chief complaint of palpitations. She has a longstanding history of PVCs that are symptomatic causing her distress and has been on Lopressor previously and she states it worked very well. This has been going on for the past year. She has stopped taking her Lopressor about two weeks ago because she did not want it to cover anything up when she had a recent echo. Over the past few days she has had significantly worse PVCs /palpitations and feels harder than ever has therefore she came in to be evaluated. Symptoms get worse at times but no exacerbating factors. She came in specifically today it has a got worse however they have calm down since being in the emergency room. Patient denies any back pain but she does have an history of aortic aneurysm Medication Reconciliation Allergies: Coded Allergies: Sulfa (Sulfonamide Antibiotics) (Unverified Allergy, Severe, ANAPHYLAXIS, 02/08/24) latex (Verified Allergy, Unknown, 02/08/24) Scheduled Albuterol Sulfate (Ventolin Hfa), 2 PUFFS IH 5XD Baclofen (Baclofen), 1 TAB PO Q8H, (Reported) Estrogens, Conjugated (Premarin), 1 TAB PO HS, (Reported) Estrogens, Conjugated (Premarin), 1 TAB PO DAILY, (Reported) Fluticasone/Salmeterol (Advair 500-50 Diskus), 1 PUFFS INH Q12H, (Reported) Levothyroxine Sodium* (Synthroid*), 1 TAB PO DAILY, (Reported) Liothyronine Sodium (Cytomel), 1 TAB PO DAILY, (Reported) Liothyronine Sodium (Cytomel), 2 TAB PO DAILY, (Reported) Metronidazole Top. Cream* (Metrogel 0.75% Topical Cream*), 1 APPLIC TP BID, ( Reported) Montelukast Sodium (Montelukast Sodium), 10 MG PO DAILY Prednisone* (Prednisone*), 20 MG PO DAILY Scheduled PRN Albuterol Sulfate (Albuterol Sulfate), 2.5 MG NEB Q1H PRN for SOB or wheezing Past Medical History Past Medical History: Hypertension, Asthma, Diverticulitis, Diverticulosis, [place]'s Disease, Hypothyroidism Past Surgical History: cholecystectomy, hysterectomy Patient History: Cerebrovascular accident in mother Alcohol Use: None Drug Use: none Lives In: Home Review of Systems ROS All review of systems negative except as per HPI Physical Exam Vital Signs: Temperature: 98.6, Source: Oral, Heart Rate: 68, Respiratory Rate: 16, BP: 136/89, Pulse Oximetry: 96, Weight: 72.450 Oxygen Flow Rate: 0 Physical Exam General: Patient is awake, alert, oriented x4 in no acute distress, anxious Head: Normocephalic and atraumatic. Eyes: Conjunctival normal. EOMI. PERRL. ENT: Mucous membranes moist. Neck: Supple, trachea is midline. Chest: Clear to auscultation bilaterally without rales, rhonchi, or wheezes. There is no accessory muscle use or retractions. Cardiac: RRR without murmurs, gallops, or rubs. Abd: Soft, nondistended, nontender, with normoactive bowel sounds. No guarding, rebound, or rigidity. Extremities: Normal strength. Normal range of motion. No deformities or edema. No calf tenderness to palpation Progress Results/Orders Results/Orders Orders - JONATHAN HARRINGTON MD Chest,Single View (10/26/24 20:50) Monitor (10/26/24 20:50) Saline Lock (10/26/24 20:50) Oxygen (10/26/24 20:50) Hs Troponin I W Calculations (10/26/24 23:50) Completed Orders - JONATHAN HARRINGTON MD Chest,Single View (10/26/24 20:50) Cbc/Diff (10/26/24 20:50) BMP (10/26/24 20:50) PBNP (10/26/24 20:50) Electrocardiogram (10/26/24 20:50) Hs Troponin I W Calculations (10/26/24 20:50) Hs Troponin I W Calculations (10/26/24 22:50) Vital Signs 10/26/24 10/26/24 10/26/24 20:46 21:53 21:55 Temp 98.6 Pulse 68 72 Resp 16 18 18 B/P (MAP) 136/89 108/81 (90) Pulse Ox 96 98 O2 Flow Rate 0 0 Laboratory Tests Test 10/26/24 20:55 10/26/24 22:50 White Blood Count 8.1 Red Blood Count 4.46 Hemoglobin 13.1 Hematocrit 38.9 Mean Corpuscular Volume 87.3 Mean Corpuscular Hemoglobin 29.3 Mean Corpuscular Hemoglobin Concent 33.6 Red Cell Distribution Width 13.4 Platelet Count 261 Mean Platelet Volume 8.1 Neutrophils (%) (Auto) 51.6 Lymphocytes (%) (Auto) 32.9 Monocytes (%) (Auto) 10.3 Eosinophils (%) (Auto) 4.4 Basophils (%) (Auto) 0.8 Neutrophils # (Auto) 4.2 Lymphocytes # (Auto) 2.7 Monocytes # (Auto) 0.8 Eosinophils # (Auto) 0.4 Basophils # (Auto) 0.1 CBC Comment Sodium Level 144 Potassium Level 4.4 Chloride Level 105 Carbon Dioxide Level 30.1 Anion Gap 9 Blood Urea Nitrogen 24 H Creatinine 0.95 H Estimated GFR/1.73 m2 62 BUN/Creatinine Ratio 25.3 H Glucose Level 104 Calcium Level 9.0 Troponin I High Sensitivity < 4 L 5 Troponin I High Sens Percent Delta Troponin I Hi Sens Absolute Change Pro-B-Type Natriuretic Peptide 59 Albumin 3.9 Chemistry Comments EKG/XRAY/CT/US/VASC/MRI EKG : Additional Comment EKG interpreted by myself shows time of 2040, rate 85, sinus rhythm, normal axis, no ST changes Chest X-Ray : Additional Comments One view chest x-ray interpreted by myself is negative for effusions or infiltrates and normal cardiac silhouette Medical Decision Making Findings Patient presented to the emergency room with some degree of chest discomfort and palpitations. Differentials include but are not limited to cardiac arrhythmia, ACS, PVCs, chest wall spasm therefore emergent labs ordered which were reassuring. Patient continued to improve during her stay in the emergency room. Every time it looked at a rhythm strip that has no abnormality appreciated. Possible runs of PVCs versus other arrhythmia however nothing objective in our workup here today in the emergency room. Patient is considered low cardiovascular risk with a heart score of two. Departure Disposition: HOME / SELF CARE / HOMELESS Impression: Primary Impression: Palpitations Condition: Improved Discharge Instructions: Palpitations Referrals: NO PRIMARY CARE PROVIDER (PCP) Signature Scribe Signature: No scribe Attestation: The note accurately reflects work and decisions made by me.Jonathan Harrington MD 10/26/24 23:37 JONATHAN HARRINGTON MD Oct 26, 2024 21:00
[2024-10-26 21:08] LABS: BASOPHILS # (AUTO) 0.1 X10'3 (0-0.2); BASOPHILS % (AUTO) 0.8 % (0-1); EOSINOPHILS # (AUTO) 0.4 X10'3 (0-0.9); EOSINOPHILS % (AUTO) 4.4 % (0-6); HEMATOCRIT 38.9 % (35.0-45.0); HEMOGLOBIN 13.1 g/dl (12.0-16.0); LYMPHOCYTES # (AUTO) 2.7 X10'3 (1.1-4.8); LYMPHOCYTES % (AUTO) 32.9 % (21-51); MEAN CORPUSCULAR HEMOGLOBIN 29.3 PG (27.0-31.0); MEAN CORPUSCULAR HGB CONC 33.6 g/dL (33.0-36.5); MEAN CORPUSCULAR VOLUME 87.3 FL (78-98); MEAN PLATELET VOLUME 8.1 FL (7.4-10.4); MONOCYTES # (AUTO) 0.8 X10'3 (0-0.9); MONOCYTES % (AUTO) 10.3 % (2-12); NEUTROPHILS # (AUTO) 4.2 X10'3 (1.8-7.7); NEUTROPHILS % (AUTO) 51.6 % (42-75); PLATELET COUNT 261 X10'3 (140-440); RED BLOOD COUNT 4.46 X10'6 (4.20-5.60); RED CELL DISTRIBUTION WIDTH 13.4 % (11.5-14.5); WHITE BLOOD COUNT 8.1 X10'3 (4.5-11.0)
[2024-10-26 21:29] LABS: ALBUMIN 3.9 G/DL (3.4-5.0); ANION GAP 9 (8-16); BLOOD UREA NITROGEN 24 MG/DL (7-18); BUN/CREATININE RATIO 25.3 (10.0-20.0); CHLORIDE 105 MMOL/L (99-107); CREATININE 0.95 MG/DL (0.40-0.90); GLUCOSE 104 MG/DL (70-104); POTASSIUM 4.4 MMOL/L (3.5-5.1); PRO BRAIN NATRIURETIC PEPTIDE 59 PG/ML (0-125); SODIUM 144 MMOL/L (135-145); TOTAL CARBON DIOXIDE 30.1 MMOL/L (24-32); eCRCL 59 ML/MIN; eGFR 62 ML/MIN
--- NOTE | 2024-10-26 21:49 | RADIOLOGY REPORT ---
CHEST RADIOGRAPH Indication: CP Technique: Single frontal view of the chest was obtained Comparison: DI CHEST,SINGLE VIEW on DOS: 02/08/24, DI CHEST,SINGLE VIEW on DOS: 10/25/23, DI CHEST,SINGL E VIEW on DOS: 10/12/23, DI CHEST,SINGLE VIEW on DOS: 10/04/23, DI CHEST,SINGLE VIEW on DOS: 10/02/23 FINDINGS: Lines and Tubes: None Lungs: No focal consolidation. Pleura: No effusion. No pneumothorax. Cardiomediastinal contours: Unremarkable Bones: No acute osseous abnormality. IMPRESSION: No acute cardiopulmonary disease.
[2024-10-27 00:17] VITALS: BP 124/76; PULSE 80; RESP 18; TEMP 97.8; O2SAT 99
== END 2024-10-27 00:21 | disposition home or self-care (01) ==
LOC: ER 20:39
DX: R00.2 Palpitations (principal); I10 Essential (primary) hypertension; E03.9 Hypothyroidism, unspecified; J45.909 Unspecified asthma, uncomplicated; Z88.2 Allergy status to sulfonamides; Z90.49 Acquired absence of other specified parts of digestive tract; Z90.710 Acquired absence of both cervix and uterus; Z91.040 Latex allergy status; Z79.899 Other long term (current) drug therapy
CPT/HCPCS: 36415; 71045; 80048; 83880; 84484; 85025; 93005; 99285

== ENCOUNTER 2025-03-21 20:24 | Emergency (ER) | payer OTHER ==
[~2025-03-21] VITALS: Ht 162.6 cm; Wt 78.0 kg
--- NOTE | 2025-03-21 20:57 | ELECTROCARDIOGRAPH REPORT ---
[facility] Test Date: 2025-03-21 Test Time: 20:54:55 Pat Name: NAYA SARKAR Department: [facility] Patient ID: [id number] Room: Gender: F Route Service Representative: : 1970 Requested By: KARINA HARRINGTON Order Number: [id number] Reading MD: Measurements Intervals [place] Rate: 83 P: 48 [place]: 149 QRS: 39 QRSD: 80 T: 21 QT: 390 QTc: 459 Interpretive Statements Sinus rhythm Baseline wander in lead(s) V3 Please click the below link to view image of tracing.
--- NOTE | 2025-03-21 20:58 | Physician Documentation ---
History of Present Illness ~ Chief Complaint: Shortness of Breath Stated Complaint: SOB Time Seen by MD: 23:43 Primary Medical Doctor: ALVARO REEVES HPI This is a 54-year-old female who presents with chest pressure and shortness breath onset while taking out her trash, patient reports chest pressure is substernal and nonradiating. Patient reports history of PVCs which she is on a medication for. History as above. History of pulmonary embolisms. States shortness of breaths that has only there when she walks. Medication Reconciliation Allergies: Coded Allergies: Sulfa (Sulfonamide Antibiotics) (Unverified Allergy, Severe, ANAPHYLAXIS, 03/21/25) latex (Verified Allergy, Unknown, 03/21/25) Scheduled Albuterol Sulfate (Ventolin Hfa), 2 PUFFS IH 5XD Baclofen (Baclofen), 1 TAB PO Q8H, (Reported) Estrogens, Conjugated (Premarin), 1 TAB PO HS, (Reported) Estrogens, Conjugated (Premarin), 1 TAB PO DAILY, (Reported) Fluticasone/Salmeterol (Advair 500-50 Diskus), 1 PUFFS INH Q12H, (Reported) Levothyroxine Sodium* (Synthroid*), 1 TAB PO DAILY, (Reported) Liothyronine Sodium (Cytomel), 1 TAB PO DAILY, (Reported) Liothyronine Sodium (Cytomel), 2 TAB PO DAILY, (Reported) Metronidazole Top. Cream* (Metrogel 0.75% Topical Cream*), 1 APPLIC TP BID, (Reported) Montelukast Sodium (Montelukast Sodium), 10 MG PO DAILY Prednisone* (Prednisone*), 20 MG PO DAILY Scheduled PRN Albuterol Sulfate (Albuterol Sulfate), 2.5 MG NEB Q1H PRN for SOB or wheezing Past Medical History Past Medical History: Hypertension, Asthma, Diverticulitis, Diverticulosis, [place]'s Disease, Hypothyroidism Past Surgical History: cholecystectomy, hysterectomy Patient History: Cerebrovascular accident in mother Alcohol Use: None Drug Use: none Lives In: Home Review of Systems ROS As stated above in the HPI, otherwise all systems are reviewed and negative. Physical Exam Vital Signs: Temperature: 97.6, Source: Temporal, Heart Rate: 94, Respiratory Rate: 15, BP: 123/74, Pulse Oximetry: 96, Weight: 78.000 Physical Exam General: Patient is awake, alert, oriented x4 in no acute distress. Mildly anxious Head: Normocephalic and atraumatic. Eyes: Conjunctival normal. EOMI. PERRL. ENT: Mucous membranes moist. Neck: Supple, trachea is midline. Chest: Clear to auscultation bilaterally without rales, rhonchi, or wheezes. There is no accessory muscle use or retractions. Cardiac: RRR without murmurs, gallops, or rubs. Extremities: Normal strength. Normal range of motion. No deformities or edema. No calf tenderness to palpation Progress Results/Orders Results/Orders Orders - JONATHAN BRYANT MD Chest,Single View (03/21/25 20:45) Monitor (03/21/25 20:45) Saline Lock (03/21/25 20:45) Oxygen (03/21/25 20:45) Cta Chest Pe (03/22/25 01:10) Completed Orders - JONATHAN BRYANT MD Chest,Single View (03/21/25 20:45) Cbc/Diff (03/21/25 20:45) BMP (03/21/25 20:45) PBNP (03/21/25 20:45) Electrocardiogram (03/21/25 20:45) Hs Troponin I W Calculations (03/21/25 20:45) Hs Troponin I W Calculations (03/21/25 22:45) Hs Troponin I W Calculations (03/21/25 23:45) D-Dimer (03/21/25 23:50) Cta Chest Pe (03/22/25 01:10) Iohexol 350mg/Ml 100ml (Omnipaque 350mg/ (03/22/25 01:10) Vital Signs 03/21/25 03/21/25 03/21/25 03/22/25 20:43 23:15 23:31 01:07 Temp 97.6 97.6 97.6 Pulse 94 73 76 Resp 15 16 16 B/P (MAP) 123/74 148/97 (114) 140/102 (115) Pulse Ox 96 97 96 O2 Flow Rate 0 0 03/22/25 01:59 Temp 97.6 Pulse 64 Resp 16 B/P (MAP) 116/80 (92) Pulse Ox 98 O2 Flow Rate 0 Laboratory Tests Test 03/21/25 20:58 03/21/25 22:49 03/21/25 23:54 White Blood Count 7.1 Red Blood Count 4.40 Hemoglobin 12.7 Hematocrit 38.6 Mean Corpuscular Volume 87.8 Mean Corpuscular Hemoglobin 28.9 Mean Corpuscular Hemoglobin Concent 32.9 L Red Cell Distribution Width 13.9 Platelet Count 237 Mean Platelet Volume 7.9 Neutrophils (%) (Auto) 52.8 Lymphocytes (%) (Auto) 33.5 Monocytes (%) (Auto) 8.9 Eosinophils (%) (Auto) 4.1 Basophils (%) (Auto) 0.7 Neutrophils # (Auto) 3.8 Lymphocytes # (Auto) 2.4 Monocytes # (Auto) 0.6 Eosinophils # (Auto) 0.3 Basophils # (Auto) 0.0 CBC Comment Sodium Level 143 Potassium Level 3.5 Chloride Level 106 Carbon Dioxide Level 28.7 Anion Gap 8 Blood Urea Nitrogen 18 Creatinine 0.80 Estimated GFR/1.73 m2 75 BUN/Creatinine Ratio 22.5 H Glucose Level 145 H Calcium Level 8.6 Troponin I High Sensitivity 4 5 6 Pro-B-Type Natriuretic Peptide 54 Albumin 3.7 Chemistry Comments Troponin I High Sens Percent Delta 25 20 Troponin I Hi Sens Absolute Change 1 1 D-Dimer 0.68 H D-Dimer Comment EKG/XRAY/CT/US/VASC/MRI EKG : Additional Comment EKG interpreted by myself shows time of 2053, rate 83, sinus rhythm, normal axis, no ST changes Chest X-Ray : Additional Comments Exam: CHEST,SINGLE VIEW CHEST RADIOGRAPH Indication: CP Technique: Single frontal view of the chest was obtained COMPARISON: DI CHEST,SINGLE VIEW on DOS: 10/26/24, DI CHEST,SINGLE VIEW on DOS: 02/08/24, DI CHEST,SINGLE VIEW on DOS: 10/25/23, DI CHEST,SINGLE VIEW on DOS: 10/12/23, DI CHEST,SINGLE VIEW on DOS: 10/04/23 FINDINGS: Lines and Tubes: None Lungs: Clear Pleura: No effusion. No pneumothorax. Cardiomediastinal contours: Unremarkable Bones: Unremarkable IMPRESSION: 1. No acute disease. Medical Decision Making Additional information obtaine: old records Findings Patient presented to the emergency room with chief complaint of shortness breath. Differentials include but are not limited to pneumonia, viral syndrome, CHF, asthma exacerbation, pulmonary embolism therefore emergent labs and imaging indicated. Mildly elevated D-dimer therefore CTA performed which was reassuring. Unknown cause for patient's shortness of breath. Possible anxiety. Heart Score: 3 Differential Dx:Considerations: Include: anxiety, asthma, bronchitis, cardiogenic shock, CHF, COPD, dysrhythmia, hypertension, accelerated, hypertension, essential, hypertension, malignant, hyperventilation, hyponatremia, myocardial infarction, panic attack, pneumonia, pneumonitis, pneumothorax, PSVT, pulmonary embolism, respiratory distress, respiratory failure, sinusitis, upper resp. infection, other Departure Disposition: HOME / SELF CARE / HOMELESS Impression: Primary Impression: Dyspnea Condition: Stable Discharge Instructions: Shortness of Breath, Adult Referrals: NO PRIMARY CARE PROVIDER (PCP) Signature Scribe Signature: No scribe Attestation: The note accurately reflects work and decisions made by me.Jonathan Bryant MD 03/22/25 02:04 JHON CHAUDHRY Mar 21, 2025 20:58 JONATHAN BRYANT MD Mar 21, 2025 23:52
[2025-03-21 21:21] LABS: MEAN PLATELET VOLUME 7.9 FL (7.4-10.4); RED CELL DISTRIBUTION WIDTH 13.9 % (11.5-14.5)
[2025-03-21 22:50] LABS: CREATININE 0.80 MG/DL (0.40-0.90); PRO BRAIN NATRIURETIC PEPTIDE 54 PG/ML (0-125); TOTAL CARBON DIOXIDE 28.7 MMOL/L (24-32); eCRCL 69 ML/MIN; eGFR 75 ML/MIN
[2025-03-22 01:59] VITALS: BP 116/80; PULSE 64; RESP 16; TEMP 97.6; O2SAT 98
--- NOTE | 2025-03-22 01:59 | RADIOLOGY REPORT ---
CTA Chest with intravenous contrast INDICATION: sob HX OF PE ABOUT A YEAR OR SO AGO. WAS ON BLOOD THINNERS FOR ABOUT 3 MONTHS AFTER. COMPARISON: Previous day chest radiograph, CT chest 10/05/2023 TECHNIQUE: Multidetector spiral CTA of the chest was performed of the chest with intravenous contrast. PULMONARY ANGIOGRAPHY PROTOCOL was utilized using a bolus- tracking technique centered on the main pulmonary artery. Axial, coronal and sagittal multiplanar and MIP reformats were performed. Radiation Dose : 1. Chest: CTDI volume is 16 mGy. Dose-length product is 556 mGy*cm The dose indicators for CT are the volume Computed Tomography (CT) Dose Index (CTDIvol) and the Dose Length Product (DLP), and are measured in units of mGy and mGy-cm, respectively. These indicators are not patient dose, but values generated from the CT scanner acquisition factors. The report includes radiation exposure data for exposures received during this examination. Findings: Pulmonary arteries: Technical factors adequate for assessment of the level of the proximal subsegmental arteries. No filling defect. Central arteries are normal in caliber. Lower neck: Unremarkable. Lungs: No focal consolidation. Pleura: Normal. Heart/Vascular Structures: Normal heart size. No pericardial effusion. Lymph Nodes: No adenopathy Musculoskeletal: No acute osseous abnormality. Soft tissues: Unremarkable. Upper abdomen: No acute abnormality. Cholecystectomy. IMPRESSION: 1. No pulmonary embolism to the level of the proximal subsegmental arteries. 2. No acute thoracic finding.
== END 2025-03-22 02:10 | disposition home or self-care (01) ==
LOC: ER 20:24
DX: R06.02 Shortness of breath (principal); J45.909 Unspecified asthma, uncomplicated; I10 Essential (primary) hypertension; E03.9 Hypothyroidism, unspecified; Z86.711 Personal history of pulmonary embolism; Z88.2 Allergy status to sulfonamides; Z91.040 Latex allergy status; Z90.710 Acquired absence of both cervix and uterus; Z90.49 Acquired absence of other specified parts of digestive tract; Z86.79 Personal history of other diseases of the circulatory system; Z79.899 Other long term (current) drug therapy
CPT/HCPCS: 36415; 71045; 71275; 80048; 83880; 84484; 85025; 85379; 93005; 99285; Q9967